=== PATIENT | female | born 1985 | race Hispanic/Latino ===

== ENCOUNTER 2022-02-19 06:45 | Day surgery (SDC) | payer OTHER ==
[2022-02-15 15:15] VITALS: BP 168/85
[2022-02-15 16:06] LABS: PROTHROMBIN TIME 10.9 SEC (9.6-11.6)
[2022-02-15 16:08] LABS: PARTIAL THROMBOPLASTIN TIME 28.2 SEC (26.3-35.5)
[2022-02-15 16:12] LABS: CREATININE 1.2 mg/dL (0.5-1.5); POTASSIUM 4.1 mmol/L (3.5-5.1)
[2022-02-19] VITALS (13 sets, daily range): BP systolic 134–228; BP diastolic 90–123
[~2022-02-19] VITALS: Ht 175.3 cm; Wt 147.4 kg
[~2022-02-19 06:45] MED LIST: 0.9% NACL 500ML IV.SOLN 500 ML IV SCH
[2022-02-19 09:27] LABS: INR 0.95 (0.85-1.15); PROTHROMBIN TIME 10.4 SEC (9.6-11.6)
[2022-02-19 09:28] LABS: PARTIAL THROMBOPLASTIN TIME 27.9 SEC (26.3-35.5)
[2022-02-19] MEDS ORDERED: 0.9%NACL 1000ML 1,000 ML IV ONE ×2 (09:36→10:43)
[2022-02-19] MEDS ORDERED: SPIR25TA6 PO (09:45)
[2022-02-19] MEDS ORDERED: ASPI-1443 PO (09:45)
[2022-02-19] MEDS ORDERED: CARV6.25 PO (09:45)
[2022-02-19] MEDS ORDERED: ATOR40TA71 PO (09:45)
[2022-02-19] MEDS ORDERED: LISI40TA9 PO (09:45)
[2022-02-19] MEDS ORDERED: SENN8.6T20 PO (09:45)
[2022-02-19] MEDS ORDERED: ACET-2743 PO (09:45)
[2022-02-19] MEDS ORDERED: HYDR25TA PO (09:45)
[2022-02-19] MEDS ORDERED: NIFE-40 PO (09:45)
[2022-02-19] MEDS ORDERED: PROPOFOL 10 MG/ML 20ML VIAL IV ONE (11:05)
[2022-02-19] MEDS ORDERED: LIDOCAINE HCL 400MG/20ML VIAL ONE (11:06)
[2022-02-19] MEDS ORDERED: MEPERIDINE-PF 25 MG/ML SYG ONE (11:30)
[2022-02-19] MEDS ORDERED: KETOROLAC 60 MG VIAL (30MG/ML) IM ONE (11:47)
[2022-02-19] MEDS ORDERED: MEPERIDINE-PF 25 MG/ML SYG IVP SCH (12:00)
== END 2022-02-19 13:00 | disposition home or self-care (01) ==
LOC: ENDO 06:45 → DAH 06:47 → ENDO 13:00
PROVIDERS: ATTEND Surgery
DX: K64.1 Second degree hemorrhoids (principal); R10.2 Pelvic and perineal pain; E11.9 Type 2 diabetes mellitus without complications; E66.01 Morbid (severe) obesity due to excess calories; I10 Essential (primary) hypertension; Z83.3 Family history of diabetes mellitus; Z82.49 Family history of ischemic heart disease and other diseases of the circulatory system; Z98.890 Other specified postprocedural states; Z68.42 Body mass index [BMI] 45.0-49.9, adult; Z79.899 Other long term (current) drug therapy
CPT/HCPCS: 36415 ×2; 45350; 80048; 84703 ×2; 85610 ×2; 85730 ×2; 87635; A4215; A4221; A4222; A4223; A4606; A4620; A4663; A6260; C9803; J1885; J2175; J2704; J3490; J7030 ×2; 99152